=== PATIENT | female | born 1935 | race Caucasian/White ===

== ENCOUNTER → 2021-07-29 13:14 | Outpatient (CLI) | payer MEDICARE, SELFPAY ==
--- NOTE | ~2021-07-29 | DEXA_ITS ---
Bone Density Report Name: Yamile Whitaker Age: 85 Sex: Female Ethnicity: White Date of : 1935 Indication: postmenopausal; screening for osteoporosis; hysterectomy; Referring Provider: SEPIDEH ARELLANO Study: Bone densitometry was performed. Exam Date: July 29, 2021 Accession number: [id number] Bone Density: Region BMD T-score Z-score Classification AP Spine (L1-L4) 0.877 -1.5 1.3 Osteopenia Femoral Neck (Left) 0.565 -2.6 -0.1 Osteoporosis Total Hip (Left) 0.703 -2.0 0.3 Osteopenia Femoral Neck (Right) 0.495 -3.2 -0.7 Osteoporosis Total Hip (Right) 0.678 -2.2 0.1 Osteopenia Total Hip Mean 0.691 -2.1 0.2 Osteopenia World Health Organization criteria for BMD impression classify patients as: Normal (T-score at or above -1.0), Osteopenia (T-score between -1.0 and -2.5), or Osteoporosis (T-score at or below -2.5). 10-year Fracture Risk: FRAX not reported because: Some T-score for Spine Total or Hip Total or Femoral Neck at or below -2.5 Treated for osteoporosis Clinical Information Provided by Patient: Is being treated for osteoporosis Has used the following medications: Lety (i.e. ibandronate) Has the following medical conditions: Hysterectomy Patient maximum height was 63.5 Menopause Age: 47 Onset of menses at age 14 Number of children 2 Impression: The patient has osteoporosis, based on the Right Femoral Neck T-score. Discussion: It is important to ask patients whether they are taking their medications and to encourage continued and appropriate compliance with their osteoporosis therapies to reduce fracture risk. It is also important to review their risk factors and encourage appropriate calcium and vitamin D intakes, exercise, fall prevention and other lifestyle measures. Follow-Up: Consider a repeat BMD and Vertebral Fracture Assessment (VFA) exam in 2 years or sooner if medically necessary, to reassess this patient's status. Reported by: MELLO on 07/29/2021 1:35:00 PM. Reviewed, dictated and finalized at location [facility]
== END ==
PROVIDERS: PCP Physician Assistant; Visit Provider Physician Assistant
DX: Z78.0 Asymptomatic menopausal state (principal); M81.0 Age-related osteoporosis without current pathological fracture; M85.88 Other specified disorders of bone density and structure, other site; M85.852 Other specified disorders of bone density and structure, left thigh; M85.851 Other specified disorders of bone density and structure, right thigh
CPT/HCPCS: 77080

== ENCOUNTER 2021-11-29 05:23 | Inpatient (IN) | payer MEDICARE, SELFPAY ==
[2021-11-29] VITALS (28 sets, daily range): BP systolic 70–117; BP diastolic 45–75; PULSE 51–107; RESP 12–14; TEMP 33.5–34.9; O2SAT 89–100; BMI 25.7
--- NOTE | ~2021-11-29 | CT_ITS ---
EXAMINATION: CT brain wo con DATE: 11/29/2021 08:36 INDICATION: Post cardiac arrest. TECHNIQUE: Computed tomography (CT) of the head was performed without intravenous contrast. The mA wa s adjusted according to patient size. Iterative reconstruction technique was employed. The dose-lengt h product was 605.33 mGy-cm. COMPARISON: None FINDINGS: There is diffuse hypoattenuation of the marley matter. There are scattered areas of low atten uation in the cerebral white matter. There is no intracranial hemorrhage or abnormal mass lesion. The ventricles are normal in size. There are likely changes of ocular lens replacement surgeries The mas toid air cells are normal. There is mild mucosal thickening in the paranasal sinuses.. IMPRESSION: 1. Diffuse hypoattenuation of the marley matter, consistent with global anoxic brain injury. 2. Moderate nonspecific cerebral white matter disease, which likely represents chronic small vessel i schemic disease. Reviewed, dictated and finalized at location A. HANDISING STOCK ASSOCIATE IMPRESSION: 1. Diffuse hypoattenuation of the marley matter, consistent with global anoxic br ain injury. 2. Moderate nonspecific cerebral white matter disease, which likely represents chronic small vessel ischemic disease.
--- NOTE | ~2021-11-29 | XR_ITS ---
EXAMINATION: XR chest ET placement DATE: 11/29/2021 06:45 INDICATION: Right chest pain. TECHNIQUE: A single frontal view of the chest was obtained. COMPARISON: None. FINDINGS: There are airspace opacities in all lung zones bilaterally. No pleural effusion or pneumoth orax. The heart size is normal. The endotracheal tube tip is 4.6 cm above the donta. The nasogastric tube tip is in the stomach. IMPRESSION: 1. Diffuse lung disease, consistent with pulmonary edema versus pneumonia. Reviewed, dictated and finalized at location A. O FREQUENCY DESIGN ENGINEER
--- NOTE | ~2021-11-29 | CT_ITS ---
EXAMINATION: CT chest abdomen pelvis wo con DATE: 11/29/2021 08:37 INDICATION: Postcardiac arrest. Fall. TECHNIQUE: Computed tomography (CT) of the chest, abdomen, and pelvis was performed without intraveno us contrast. Automated exposure control and iterative reconstruction technique were employed. The dos e-length product was 959.62 mGy-cm. COMPARISON: None FINDINGS: CHEST CT: There are airspace and groundglass opacities and septal thickening involving all lobes with air bronc hograms with a posterior lung predominance. No pleural effusion. The heart size is normal. There are coronary artery calcifications. No pericardial effusion. There are calcifications of the aortic valve . There is mild mediastinal lymphadenopathy, likely reactive. The endotracheal tube tip is in expecte d position. The nasogastric tube tip is in the stomach. There is mild thoracic spondylosis. There are fractures of anterior right sixth and seventh and eighth ribs. There are fractures of anterior left seventh and eighth ribs. ABDOMEN/PELVIS CT: The liver demonstrates periportal edema. There are gallstones in the gallbladder, which is normal in size. Gallbladder wall thickening is noted, likely interstitial edema and/or chronic cholecystitis. T he spleen, pancreas, adrenal glands, and kidneys are normal. There is no urolithiasis. There are no d ilated loops of bowel. The appendix is normal. There are no pathologically enlarged lymph nodes. Ther e is no free intraperitoneal fluid. There is a catheter in right femoral vein with tip in right exter nal iliac vein. There is a 3.2 x 3.5 cm rim calcified mass in right pelvis that may be a saccular ane urysm or old hematoma. There is fat stranding in the upper abdomen, consistent with edema. There is s evere lower lumbar spondylosis. IMPRESSION: 1. Diffuse lung disease, likely a combination of pneumonia and pulmonary edema. 2. Fractures of anterior right sixth-eighth ribs in anterior left seventh-eighth ribs. 3. 3.5 cm rim-calcified mass in right pelvis that may be a saccular aneurysm of a right internal janine c artery branch or less likely an old hematoma. If this is an aneurysm, internal calcifications sugge st it is at least partially thrombosed. Reviewed, dictated and finalized at location A. E DRIVER IMPRESSION: 1. Diffuse lung disease, likely a combination of pneumonia and pulmonary edema. 2. Fractures of anterior right sixth-eighth ribs in anterior left seventh-eight h ribs. 3. 3.5 cm rim-calcified mass in right pelvis that may be a saccular aneurysm of a right internal iliac artery branch or less likely an old hematoma. If this i s an aneurysm, internal calcifications suggest it is at least partially thrombo sed.
--- NOTE | ~2021-11-29 | CT_ITS ---
EXAMINATION: CT cervical spine wo con DATE: 11/29/2021 08:36 INDICATION: Neck injury. TECHNIQUE: Computed tomography (CT) of the cervical spine was performed without intravenous contrast. Automated exposure control and iterative reconstruction technique were employed. The dose-length pro duct was 321.09 mGy-cm. COMPARISON: None FINDINGS: There is mild kyphosis of cervical spine. There is 2 mm anterolisthesis of C7 on T1. Verteb ral body heights are normal. There is mildly decreased disc height at C3-C4 and severely decreased di sc height from C4-C5 through C6-C7. The following disc levels are specifically discussed: C2-C3: There is no uncovertebral joint osteoarthritis. There is mild right and severe left facet join t osteoarthritis. There is mild left neural foraminal stenosis. There is no central canal stenosis. C3-C4: There is severe bilateral uncovertebral joint osteoarthritis. There is severe bilateral facet joint osteoarthritis. There is moderate right and mild left neural foraminal stenosis. There is mild central canal stenosis. C4-C5: There is severe bilateral uncovertebral joint osteoarthritis. There is mild right and severe l eft facet joint osteoarthritis. There is mild right and moderate left neural foraminal stenosis. Ther e is mild central canal stenosis. C5-C6: There is severe bilateral uncovertebral joint osteoarthritis. There is mild right and severe l eft facet joint osteoarthritis. There is mild bilateral neural foraminal stenosis. There is mild cent ral canal stenosis. C6-C7: There is severe bilateral uncovertebral joint osteoarthritis. There is mild right and severe l eft facet joint osteoarthritis. There is mild bilateral neural foraminal stenosis. There is mild cent ral canal stenosis. C7-T1: There is no uncovertebral joint osteoarthritis. There is severe bilateral facet joint osteoart hritis. There is mild bilateral neural foraminal stenosis. There is no central canal stenosis. IMPRESSION: 1. No fracture. 2. Severe cervical spondylosis. Reviewed, dictated and finalized at location A. G COATER
[2021-11-29] MEDS: SODIUM CHLORIDE 0.9% IV 1,000 ML 999 ML IV CONT ×2 (05:34→06:32)
[2021-11-29 05:48] LABS: Basophils Absolute Auto 0.1 K/mm3 (0.0-0.1); Basophils Percent Auto 0.4 % (0.2-1.2); Eosinophils Percent Auto 0.2 % (0-4.4); Hematocrit 43.9 % (37.0-47.0); Hemoglobin 13.1 g/dL (12.0-15.0); Immature Granulocyte Absolute 0.37 K/mm3 (0.00-0.031); Immature Granulocyte Percent A 2.1 % (0-0.5); Lymphocytes Absolute Auto 5.37 K/mm3 (0.9-3.2); Lymphocytes Percent Auto 30.8 % (18.3-44.2); Mean Corpuscular HGB Conc 29.8 g/dl (32-36); Mean Corpuscular Hemoglobin 31.5 pg (26-34); Mean Corpuscular Volume 105.5 fl (80-100); Mean Platelet Volume 10.6 fl (7.4-10.4); Monocytes Absolute Auto 1.4 K/mm3 (0.1-0.6); Monocytes Percent Auto 8.2 % (2.6-8.5); Neutrophils Absolute Auto 10.2 K/mm3 (1.3-6.7); Neutrophils Percent Auto 58.3 % (45.5-73.1); Nucleated Red Blood Cells Absolute Auto 0.1 K/mm3 (0.0-0.012); Nucleated Red Blood Cells Perc 0.3 % (0.0-0.2); Platelet Count Result 265 k/mm3 (150-375); Red Blood Count 4.16 M/mm3 (4.2-5.4); Red Cell Distribution Width 13.2 % (11.5-14.5); White Blood Count 17.4 K/mm3 (4.5-10.0)
--- NOTE | 2021-11-29 06:01 | ED.GENADULT ---
HPI - General Adult General Chief complaint: Cardiac Arrest/CPR Stated complaint: cardiac arrest Time Seen by Provider: 11/29/21 05:34 History of Present Illness HPI narrative: Patient is a 86-year-old female presents the emergency department chief complaint of cardiac arrest. Per EMS the patient was found slumped over on a couch unresponsive. The patient was initially asystole she had 3 rounds of epi in the field and the had a bradycardic rhythm. Patient had return of spontaneous circulation in the back of the ambulance but then subsequently lost her pulse in the emergency department and underwent CPR and resuscitative efforts. Patient then has had returned you were taught return of spontaneous circulation and currently we are working on stabilizing the patient Related Data Allergies Allergy/AdvReac Type Severity Reaction Status Date / Time ? ANTIBIOTICS Allergy Mild unk Uncoded 11/03/21 13:06 Review of Systems Review of Systems: ROS unobtainable: Yes unobtainable due to medical condition PMFSH Past Medical History Medical History Hypertensive chronic kidney disease with stage 1 through stage 4 chronic kidney disease, or unspecified chronic kidney disease Wellness examination Social History Social History Smoking status: Never smoker Second hand tobacco smoke exposure: No Alcohol intake: never Substance use: never Substance use type: does not use Gender identity (if verbalized by the patient): Female Sexual Orientation (if Verbalized by the Patient): Straight or Heterosexual Exam Narrative: GENERAL: Ill-appearing, unresponsive. HEAD: Normocephalic, atraumatic. EYES: PERRLA and EOMI. ENT: Nares clear, no rhinorrhea or epistaxis. Mucous membranes moist. Endotracheal tube in place NECK: Supple. CHEST: Clear to auscultation. No respiratory distress. HEART: Bradycardic rate and rhythm. No murmur heard. Normal peripheral pulses. ABDOMEN: Soft, nontender, nondistended, normal active bowel sounds. EXTREMITIES: Normal range of motion. No edema. SKIN: Warm, dry, no rash. NEURO: Unresponsive PSYCH: Unresponsive. Procedures Central Line Placement Right Femoral: Central Line Date: 11/29/21 Central Line Time: 06:02 Performed Emergently - Given emergent patient condition, temporal constraints may have precluded informed consent.: Yes Time Out Performed: Yes Patient Placed on Monitor/Pulse Ox: Yes Max. Sterile Barrier Technique: Caps, large sterile sheet and hand hygiene Central Line Prep: 2% chlorhexidine scrub and sterile drapes applied Technique: seldinger Ultrasound Used for Placement: No Central Line Lumen Inserted: triple Post Procedure: sutured in place, good blood return, all ports aspirated, flushed, capped and sterile dressing applied Patient Tolerated Procedure: well and no complications Complications: none Medical Decision Making Lab Data Result diagrams: 11/29/21 05:43 11/29/21 05:43 Labs: Lab Results 11/29/21 11/29/21 11/29/21 Range/Units 05:43 05:43 05:43 WBC Pending RBC Pending Hgb Pending Hct Pending MCV Pending MCH Pending MCHC Pending RDW Pending Plt Count Pending MPV Pending Immature Gran % (Auto) Pending Neut % (Auto) Pending Lymph % (Auto) Pending [place] % (Auto) Pending Eos % (Auto) Pending Baso % (Auto) Pending Lymph # (Auto) Pending [place] # (Auto) Pending Eos # (Auto) Pending Baso # (Auto) Pending Abs Immat Gran (auto) Pending Absolute Neuts (auto) Pending Absolute Nucleated RBC Pending Nucleated RBC % Pending PT Pending INR Pending APTT Pending Sodium Pending Potassium Pending Chloride Pending
[2021-11-29 06:03] LABS: Albumin Level 3.9 g/dL (3.5-5.1); Alkaline Phosphatase 111 U/L (38-126); Anion Gap 26 mmol/L (8-16); Bilirubin,Total 0.7 mg/dL (0.2-1.3); Blood Urea Nitrogen 20 mg/dL (7-17); Calcium 9.8 mg/dL (8.4-10.2); Carbon Dioxide 9 mmol/L (22-30); Chloride 97 mmol/L (98-107); Estimated Glomerular Filt Rate 25; Glucose 309 mg/dL (65-110); Magnesium 2.6 mg/dL (1.6-2.3); Potassium 5.2 mmol/L (3.4-5.0); Sodium 132 mmol/L (137-145)
[2021-11-29 06:10] LABS: NT Pro B Type Natriuretic Pept 5450 pg/mL (5-100)
[2021-11-29] MEDS: NOREPINEPHRINE 8 MG/D5W 250 ML 8 MG/250 ML BAG 9.38 MG IV CONT (06:11)
[2021-11-29 06:24] LABS: Troponin I 0.103 ng/mL (0.000-0.034)
[2021-11-29 06:27] LABS: Platelet Estimate Adequate (Adequate)
[2021-11-29 06:28] LABS: Anisocytosis 1+ (NORMAL); Atypical Lymphocytes Present
[2021-11-29] MEDS: DOPamine 400 MG/D5W 250 ML 400 MG/250 ML BAG 15.62 MG IV CONT (06:30)
[2021-11-29 06:39] LABS: Lactic Acid Reflex 17.3 mmol/L (0.7-2.1)
[2021-11-29 06:41] LABS: Alveolar/Arterial O2 Gradient 442.8 mmHg; Base Excess ABG -27.8 mEq/l (+/-2.0); Carboxyhemoglobin 0.3 % THb (0-2.0); Fractional Inspired Oxygen 100 %; HCO3 ABG 6.5 mEq/l (22.0-26.0); Methemoglobin ABG 0.4 %THb (0-1.5); Oxygen Content ABG 17.9 %vol (16.0-22.0); Oxygen Saturation ABG 98.5 % (95.0-100.0); Oxyhemoglobin 97.3 % THb (90.0-100.0); PCO2 ABG 43.3 mmHg (35.0-45.0); PO2 ABG 226.9 mmHg (80.0-100.0); PO2 FiO2 Ratio Arterial Blood 2.27 %; Total Hemoglobin 12.7 g/dL (12.0-18.0)
[2021-11-29 06:43] LABS: pH ABG 6.797 (7.350-7.450)
[2021-11-29 06:44] LABS: Arterial Blood Gas PEEP 12 cmH2O; Arterial Blood Gas Tidal Volume 500 ml; Arterial Blood Gas Vent Mode CMV; Arterial Blood Gas Ventilator rate 12 /MIN; Device VENTILATOR; Site Drawn RIGHT BRACHIAL
[2021-11-29 07:03] LABS: Add Urine Microscopic? YES; Appearance Urine Cloudy (Clear); Bacteria Urine Trace /hpf; Bilirubin Urine Negative (Negative); Blood Urine 1+ (Negative); Color Urine Yellow (Yellow); Glucose Urine UA Negative (Negative); Ketones Urine Negative (Negative); Leukocyte Esterase Ur Negative LEU/UL (Negative); Mucus Urine Few /lpf; Nitrate Urine Negative (Negative); Protein Urine 2+ mg/dL (Negative); Specific Grav Ur 1.011 (1.001-1.035); Squamous Epithelial Cell Urine Few /hpf (Few); Urobilinogen Urine Negative mg/dL (<2.0)
[2021-11-29 07:34] LABS: SARS-CoV-2 RNA PCR Negative
--- NOTE | 2021-11-29 07:37 | PC.NURSE ---
Pt to ED with CPR in progress. Per EMS report, pt fell SENIOR MARKETING DATA ANALYST and was found by . EMS arrived and found pt bradycardic and initiated ACLS protocol. Gave 0.5mg Atropine en route.
[2021-11-29] MEDS: SODIUM BICARBONATE 8.4% 150 MEQ in WATER, STERILE FOR INJECTION 950 ML 125 MEQ IV CONT ×2 (07:48→09:38)
[2021-11-29 08:01] LABS: Alanine Aminotransferase 3126 U/L (4-35)
[2021-11-29 08:14] LABS: Aspartate Amino Transferase 4015 U/L (14-36)
[2021-11-29 08:46] LABS: Reflex Lactic Acid Yes or No Add Lactic
--- NOTE | 2021-11-29 09:16 | WPDCNINT ---
Assessment and Plan Assessment and plan (1) Anoxic brain injury: Code(s): G93.1 - Anoxic brain damage, not elsewhere classified Status: Acute Assessment and Plan: Patient appears to have sustained significant anoxic brain injury. She has no spontaneous respiratory effort, right pupil is blown and fixed, no response to pain and no cough or gag reflex on presentation. Her CT head on presentation showed 1. Diffuse hypoattenuation of the marley matter, consistent with global anoxic brain injury. 2. Moderate nonspecific cerebral white matter disease, which likely represents chronic small vessel ischemic disease. She is currently not on any sedation and is spontaneously hypothermia. I will continue TTM to keep temperature below 36C for now Further workup will depend on patient's family's goals of care (2) Cardiopulmonary arrest: Code(s): I46.9 - Cardiac arrest, cause unspecified Status: Acute Assessment and Plan: Unknown etiology at this time Echo is pending EKG in the ER did not show any ST elevation as per sign-out by ER physician. I can not locate the EKG itself so I will repeat it here in ICU Cardiology consult Serial troponin (3) Hyperlipidemia: Code(s): E78.5 - Hyperlipidemia, unspecified Status: Acute Assessment and Plan: Statin on hold due to elevated liver enzymes (4) Shock: Code(s): R57.9 - Shock, unspecified Status: Acute Assessment and Plan: Likely mixed shock secondary to cardiac arrest and sepsis Add vasopressin and epinephrine to Levophed and dopamine Sodium bicarb IV push at this time for acidosis At hydrocortisone Patient received 2 L of bolus in ER. I will give another 1 L and continue IV maintenance fluids (5) Sepsis: Code(s): A41.9 - Sepsis, unspecified organism Status: Acute Assessment and Plan: Patient appears to have pneumonia on her CT chest which could be aspiration Sputum and blood culture Monitor lactic acid level which could be secondary to sepsis and cardiac arrest IV fluids Start empiric Zosyn (6) GARRETT (acute kidney injury): Code(s): N17.9 - Acute kidney failure, unspecified Status: Acute Assessment and Plan: Likely secondary to cardiac arrest and shock Monitor urine output electrolytes and creatinine IV fluids with bicarb Repeat BMP (7) CKD (chronic kidney disease), stage III: Code(s): N18.3 - Chronic kidney disease, stage 3 (moderate) Status: Acute (8) Elevated liver enzymes: Code(s): R74.8 - Abnormal levels of other serum enzymes Status: Acute Assessment and Plan: Likely secondary to shock liver Monitor Hold statin Additional Plan DVT prophylaxis -Lovenox Stress ulcer prophylaxis -PPI Nutrition -NPO Code Status -I spoke to patient's Benjamin by phone and I updated him with patient's current status including her neurological exam and evidence of significant anoxic brain injury. I also spoke to patient's daughter by phone and updated her with patient's current status and current treatment plan. Patient's is on his way to see patient and I will further discuss goals of care with him when he arrived. Unfortunately patient's daughter cannot come as she has COVID.. Total Critical Care Time -45 minutes Due to a high probability of clinically significant, life threatening deterioration, the patient required my highest level of preparedness to intervene emergently and I personally spent this critical care time directly and personally managing the patient. This critical care time included obtaining a history; examining the patient; pulse oximetry; ordering and review of studies; arranging urgent treatment with development of a management plan; evaluation of patient's response to treatment; frequent reassessment; and discussions with other providers. It was exclusive of separately billable procedures and treating other patients and teaching time. Please
--- NOTE | 2021-11-29 09:31 | ECG_ITS ---
Measurements Intervals [place] Rate: 86 P: 227 AR: 283 QRS: -59 QRSD: 121 T: 116 QT: 426 QTc: 512 Interpretive Statements ACCLERATED JUNCTIONAL RHYTHM RIGHT BUNDLE BRANCH BLOCK LEFT ANTERIOR FASCICULAR BLOCK LEFT VENTRICULAR HYPERTROPHY AND ST-T CHANGE BASELINE WANDER- V1-V2 ABNORMAL ECG Electronically Signed On 11-29-2021 9:35:24 OPERATING ENGINEER by Michael Holman D.O.
[2021-11-29] MEDS: SODIUM BICARBONATE 8.4% 50 MEQ/50 ML SYRINGE 100 MEQ IV PUSH (09:33)
[2021-11-29] MEDS: CENTRAL LINE FLUSH 10 ML IV PUSH (09:37)
[2021-11-29] MEDS: ENOXAPARIN 30 MG/0.3 ML SYRINGE SUB-Q (09:38)
[2021-11-29] MEDS: PANTOPRAZOLE SODIUM IV 40 MG VIAL IV PUSH (09:39)
[2021-11-29] MEDS: HYDROCORTISONE SODIUM SUCCINATE 100 MG/2 ML VIAL IV PUSH (09:39)
[2021-11-29] MEDS: ASPIRIN 325 MG TABLET FEED TUBE (09:43)
--- NOTE | 2021-11-29 09:56 | P.PNCROSS_ITS ---
Event Note Event Note Event Note: Family Meeting I met with patient's in presence of nurse Pappas. I demonstrated the neurological exam and lack of spontaneous respiratory effort to him. I updated them with patient's current condition, current treatment plan, and extremely poor prognosis of functional outcome. I explained him that patient may proceed to brain by herself eventually if not already there. He told me that patient would not wanna be dependent on machines and considering her poor pr ognosis he does not think that she would want to continue like this. He spoke to his daughter by phone and she was also agreeable with his decision. He has decided, in accordance with pt's wishes, to discontinue all medical therapy and institute comfort measures only at this time. I will palliatively extubate and use opioids, anxiolytics and other agents on as needed basis to promote comfort and discontinue all medical therapy, lab testing and invasive monitoring. Total time spent in advance care planning earlier on phone and now in person 30 minutes
--- NOTE | 2021-11-29 10:12 | ADMGEN ---
This patient, Yamile Whitaker, was admitted to Intensive Care Unit-6 at 0830. Patient/family oriented to hospital policies and general routines including ID bracelet, bed and alarms, visiting hours, pain management, procedures, bathroom and other care routines, personal items, smoking policy, room service/diet, and visiting hours. Information on how to activate the Rapid Response Team has been discussed. Patient/Family are encouraged to report perceived risks to care and to ask questions if they do not understand what they are told or what they should do.
--- NOTE | 2021-11-29 13:48 | PM.DDS ---
Discharge Summary Date and Time Date of : 11/29/21 Time of : 10:25 Provider Pronounced By: Mian GOMES Probable Cause of Probable Cause of : Cardiac arrest Summary Hospital Course: 86 year old female with past medical history of chronic kidney disease stage 3, hypertension, impaired fasting glucose, hyperlipidemia and anxiety who was brought to the emergency department after a cardiac arrest. History was obtained from physician sign-out and patient's by phone. Patient unable to provide any history as she was intubated and unresponsive. Per patient was having difficulty breathing and she then slumped on her couch and became unresponsive. He called 911 estimates approximately 15 minutes time between her stop breathing and arrival off EMS. The patient was initially asystole and she had 3 rounds of epi in the field and the had a bradycardic rhythm. Patient had return of spontaneous circulation in the back of the ambulance but then subsequently lost her pulse in the emergency department and underwent CPR and resuscitative efforts. Femoral central venous catheter was placed, patient was started on multiple vasopressors, IV bicarb was given and on my request CT head chest abdomen pelvis was done and patient is now admitted to ICU for further evaluation and management. On arrival to ICU the exam showed that patient had sustained significant anoxic brain injury. She had no spontaneous respiratory effort, right pupil was blown and fixed, no response to pain and no cough or gag reflex on presentation. Her CT head on presentation showed 1. Diffuse hypoattenuation of the marley matter, consistent with global anoxic brain injury. 2. Moderate nonspecific cerebral white matter disease, which likely represents chronic small vessel ischemic disease. I spoke to patient's and daughter by phone and updated them with patient's neurological exam and status. Patient is arrived to the hospital and I met with him bedside in presence of nurse Mian. I demonstrated the neurological exam and lack of spontaneous respiratory effort to him. I updated him with patient's current condition, current treatment plan, and extremely poor prognosis of functional outcome. He told me that patient would not wanna be dependent on machines and considering her poor prognosis he does not think that she would want to continue like this. He spoke to his daughter by phone and she was also agreeable with his decision. He decided, in accordance with pt's wishes, to discontinue all medical therapy and institute comfort measures only at this time. Patient was palliatively extubated and I discontinued all medical therapy, lab testing and invasive monitoring. Patient was pronounced at 10:25 a.m. Additional Data Confirmation of as documented by pronouncing clinician: Pupillary Reflex, Palpable Pulses, Response to Stimuli, Heart Tones and Breath Sounds Name of Provider Notified: Dr. Elkins Time Provider Notified: 10:27 Provider Requests Autopsy: No Family Requests Autopsy: No Tire Builder Operator Notified: Yes Date [facility] Notified of : 11/29/21 Time [facility] Notified of : 10:39
--- NOTE | 2021-12-30 16:00 | PM.IMHP ---
H&P: HPI History of Present Illness Date/Time: 11/29/2021 ED-HPI narrative: Patient is a 86-year-old female presents the emergency department chief complaint of cardiac arrest. Per EMS the patient was found slumped over on a couch unresponsive. The patient was initially asystole she had 3 rounds of epi in the field and the had a bradycardic rhythm. Patient had return of spontaneous circulation in the back of the ambulance but then subsequently lost her pulse in the emergency department and underwent CPR and resuscitative efforts. Patient then has had returned you were taught return of spontaneous circulation and currently we are working on stabilizing the patient. 11/29/2021 unable to provide any review of symptom patient on vent and seen by pbx operator appreciate. Chief Complaint: cardiac arrest unresponsive Review of Systems Review of Systems: ROS unobtainable: Yes unobtainable due to endotracheal tube PMFSH Past Medical History Medical History Hypertensive chronic kidney disease with stage 1 through stage 4 chronic kidney disease, or unspecified chronic kidney disease Wellness examination Social History Social History Smoking status: Unknown if ever smoked Second hand tobacco smoke exposure: No Alcohol intake: never Substance use: never Substance use type: does not use Gender identity (if verbalized by the patient): Female Sexual Orientation (if Verbalized by the Patient): Straight or Heterosexual Spiritual care concerns: No Meds Home Medications and Allergies Home Medications Medication Instructions Recorded Confirmed Type rosuvastatin 5 mg tablet 5 mg PO DAILY #90 tablet 04/11/21 11/29/21 Rx metoprolol succinate 50 mg 50 mg PO DAILY #90 tablet 04/23/21 11/29/21 Rx tablet,extended release 24 hr amlodipine 10 mg tablet 10 mg PO DAILY #90 tablet 08/06/21 11/29/21 Rx ibandronate 150 mg tablet 150 mg PO MONTHLY #12 tablet 11/11/21 Rx lorazepam 0.5 - 1 mg PO HS PRN 11/29/21 11/29/21 History losartan 25 mg PO DAILY 11/29/21 11/29/21 History Allergies Allergy/AdvReac Type Severity Reaction Status Date / Time ? ANTIBIOTICS Allergy Mild unk Uncoded 11/03/21 13:06 Exam Narrative: Patient is comfortable, NAD HEENT: ET tube in place LUNGS: normal respiratory effort on vent ABD: nondistended Lower extremities: no edema SKIN: nonjaundiced Neuro: on vent and unresponsive. Assessment and Plan Assessment and plan (1) Anoxic brain injury: Code(s): G93.1 - Anoxic brain damage, not elsewhere classified Status: Acute Assessment and Plan: 11/29/2021 unable to provide any review of symptom patient on vent and seen by pbx operator appreciate.
== END 2021-11-29 10:25 | disposition expired | DRG 871 ==
LOC: ANHED 07:14 → ANHICU 07:57
PROVIDERS: Admitting Provider Internal Medicine; Emergency Provider Emergency Medicine; PCP Family Medicine; Visit Provider Internal Medicine
DX: A41.9 Sepsis, unspecified organism (principal); K72.00 Acute and subacute hepatic failure without coma; R65.21 Severe sepsis with septic shock; J18.9 Pneumonia, unspecified organism; J69.0 Pneumonitis due to inhalation of food and vomit; G93.1 Anoxic brain damage, not elsewhere classified; N17.9 Acute kidney failure, unspecified; I46.8 Cardiac arrest due to other underlying condition; Z51.5 Encounter for palliative care; R57.8 Other shock; I12.9 Hypertensive chronic kidney disease with stage 1 through stage 4 chronic kidney disease, or unspecified chronic kidney disease; N18.30 Chronic kidney disease, stage 3 unspecified; E78.5 Hyperlipidemia, unspecified; F41.9 Anxiety disorder, unspecified; Z20.822 Contact with and (suspected) exposure to COVID-19
CPT/HCPCS: 36415; 36556; 36600; 70450; 71250; 72125; 74176; 80053; 81001; 82375; 82805; 83050; 83605; 83735; 83880; 84450; 84460; 84484; 85025; 86850; 86900; 86901; 87086; 92950; 93005; 96361; 96365; 96367; 96375; 99291; A9270; C9113; C9803; J0171; J1265; J1650; J1720; J2060; J2270; J7030; J7060; U0003; U0005